=== PATIENT | male | born 1995 | race Caucasian/White ===

== ENCOUNTER 2017-11-02 17:00 | Emergency (ER) | payer BC ==
[2017-11-02 17:05] VITALS: BP 137/91; PULSE 78; RESP 16; TEMP 98.2; O2SAT 95
[2017-11-02] MEDS ORDERED: LET GEL TOPICAL 1 EA SYR TP ONE (17:10)
--- NOTE | 2017-11-02 17:19 | EDPHY ---
H & P Time Seen by Provider: 11/02/17 17:08 HPI/ROS: CHIEF COMPLAINT: Left knee swelling HISTORY OF PRESENT ILLNESS: 22-year-old male arrives via private vehicle complaining of left knee swelling. Prior history of left knee surgery in May 2015 by unknown surgeon at [facility]. States that last evening he was walking, tripped and fell onto his left knee, sustained abrasion , woke this morning noted left knee soft tissue swelling, decreased range of motion secondary to pain. No fall from height. No proximal distal pain or injury. Tetanus is up-to-date. PHYSICAL EXAM (Prior to examination, patient consented to physical exam, hands were washed and my usual and customary physical exam procedures followed) 1) GENERAL: Well-developed, well-nourished, alert and oriented. Appears to be in no acute distress. 2) HEAD: Normocephalic 3) HEENT: Pupils equal, round, reactive to light bilaterally. 4) LUNGS: Breathing comfortably. 5) MUSCULOSKELETAL: Exam of the left knee shows an anterior knee abrasion with soft tissue swelling. Limited range of motion secondary to pain.. Compartments are soft. 6) SKIN: abrasion with no signs of infection 7) VASCULAR: DP,PT pulses and cap refill present and brisk distally DIFFERENTIAL DIAGNOSIS: in no particular order including but not limited to fracture, sprain, compartment syndrome, septic arthritis, DVT Procedure: Crutches indications for crutch use discussed with patient. Patient fitted for crutches by ER staff. Observed ambulating with crutches. I think the patient has the capacity to safely use crutches. Usual and customary crutch walking precautions provided Procedure: Splint A knee immobilizer splint was applied by ER crime scene technician. After application of the splint I returned and re-examined the patient. The splint was adequately immobilizing the joint and distal to the splint the patient's circulation and sensation were intact. Patient shows no signs of compartment syndrome. Was given orthopedic precautions. MEDICAL DECISION MAKING Serial evaluations performed on patient. I discussed the limitations of x-ray in diagnosis of knee pain and injury. At this time I do not think that emergent MRI is currently indicated. However, I have recommended follow-up with Orthopedic surgery and provided this referral information. He has previously been seen at [facility] would like to follow up there. Informed the patient that outpatient MRI may be indicated. Doubt septic arthritis. Doubt compartment syndrome. Doubt DVT.. Care of patient under supervision of primary secondary supervising physician who independently evaluated patient. Smoking Status: Never smoked Constitutional: Initial Vital Signs Temperature (C) 36.8 C 11/02/17 17:01 Heart Rate 78 11/02/17 17:01 Respiratory Rate 16 11/02/17 17:01 Blood Pressure 137/91 H 11/02/17 17:01 O2 Sat (%) 95 11/02/17 17:01 O2 Delivery Mode Room Air Allergies/Adverse Reactions: No Known Allergies Allergy (Unverified 11/02/17 17:05) Home Medications: Medication Instructions Recorded Hydrocodone/APAP 5/325 [[place] 1 tab PO Q6 PRN #7 tab 11/02/17 5/325 (RX)] Lisdexamfetamine Dimesylate 60 mg PO DAILY 11/02/17 [Vyvanse] MDM/Departure - MDM Medications Given: Discontinued Medications Tetracaine/Epinephrine/Lidocaine (Let Gel Topical) 1 ea TP EDNOW ONE Stop: 11/02/17 17:11 Last Admin: 11/02/17 17:13 Dose: 1 ea - Depart Disposition: Home, Routine, Self-Care Clinical Impression: Abrasion, left knee, initial encounter, Effusion, left knee Condition: Good Instructions: Knee Sprain (ED) Additional Instructions: Return to the ER immediately if you experience discoloration, have worsening pain, numbness, tingling, or any other symptoms that concern you. If you received x-rays in the emergency department today, be advised, that ligamentous , tendon, muscular, and other non-bony injury cannot be fully ruled out. Try to keep your affected extremity elevated above the level of your chest, and keep cold packs on the affected area, for the next 48 hours. Prescriptions: Hydrocodone/APAP 5/325 [[place] 5/325 (RX)] 1 tab PO Q6 PRN #7 tab PRN Reason: Pain, Severe Referrals: Miguel Fernández MD [Medical Doctor] - 2-3 days, call for appt.
== END 2017-11-02 18:19 | disposition home or self-care (01) ==
DX: S80.02XA Contusion of left knee, initial encounter (principal); S80.212A Abrasion, left knee, initial encounter; W01.0XXA Fall on same level from slipping, tripping and stumbling without subsequent striking against object, initial encounter; Y99.8 Other external cause status; Y93.01 Activity, walking, marching and hiking
CPT/HCPCS: L1830